=== PATIENT | male | born 1950 | race Caucasian/White ===

== ENCOUNTER 2018-03-15 10:44 | Emergency (ER) | payer OTHER ==
[~2018-03-15] VITALS: Ht 165.1 cm; Wt 61.2 kg
[2018-03-15 10:53] VITALS: BP 151/113
[2018-03-15] MEDS ORDERED: HYDROcodone-ACET 5/325MG TAB PO ONE (11:30)
[2018-03-15] MEDS ORDERED: KETOROLAC TROMETH 60MG/2ML VIAL IM ONE (11:30)
== END 2018-03-15 12:22 | disposition home or self-care (01) ==
LOC: ER 10:44
DX: S83.92XA Sprain of unspecified site of left knee, initial encounter (principal); E11.9 Type 2 diabetes mellitus without complications; I10 Essential (primary) hypertension; X58.XXXA Exposure to other specified factors, initial encounter; Y93.89 Activity, other specified; Y92.89 Other specified places as the place of occurrence of the external cause; Y99.8 Other external cause status
CPT/HCPCS: 73562; 96372; 99284; J1885

== ENCOUNTER 2021-12-11 05:59 | Emergency (ER) | payer OTHER ==
[~2021-12-11] VITALS: Ht 167.6 cm; Wt 72.6 kg
[2021-12-11 07:19] LABS: Albumin 3.5 g/dL (3.4-5.0); Calcium 8.8 mg/dL (8.5-10.1); Potassium 3.4 mmol/L (3.5-5.1); Salicylate < 1.7 mg/dL (2.8-20.0)
[2021-12-11 07:23] LABS: BUN/Creatinine Ratio 9.3; Bilirubin, Total 0.2 mg/dL (0.2-1.0); Total Protein 7.2 g/dL (6.4-8.2)
[2021-12-11 07:25] LABS: Acetaminophen < 2.0 ug/mL (10-30)
[2021-12-11 07:28] LABS: Basophils # (auto) 0 10 ^3/uL (0-0.2); Basophils % (auto) 0.2 % (0.0-2.0); Eosinophils # (auto) 0.1 10 ^3/uL (0-0.8); Eosinophils % (auto) 1.2 % (0.0-7.0); Hematocrit 40.7 % (41.0-53.0); Hemoglobin 13.6 g/dL (13.5-17.5); Lymphocytes # (auto) 1.7 10 ^3/uL (0.4-5.4); Lymphocytes % (auto) 26.5 % (10.0-50.0); Mean Corpuscular Hgb Conc. 33.5 g/dL (32.0-36.0); Mean Corpuscular Volume 95.5 fL (80.0-100.0); Monocytes # (auto) 0.5 10 ^3/uL (0-1.3); Monocytes % (auto) 7.5 % (0.0-12.0); Neutrophils # (auto) 4.2 10 ^3/uL (1.6-8.6); Neutrophils % (auto) 64.6 % (37.0-80.0); Red Blood Cells 4.26 10^6/uL (4.5-5.90); Red Cell Distribution Width 14.7 % (11.8-14.3); White Blood Cell 6.6 10^3/uL (4.4-10.8)
[2021-12-11] MEDS ORDERED: THIAMINE 100mg/ml INJ (200mg/2ml VIAL) IV ONE (08:30)
[2021-12-11] MEDS ORDERED: SODIUM CHLORIDE 0.9% 1,000 ML IV ONE ×2 (08:30)
[2021-12-11 18:17] VITALS: BP 137/83
== END 2021-12-11 18:33 | disposition home or self-care (01) ==
LOC: EDBD 05:59 → ER 05:59
DX: G93.41 Metabolic encephalopathy (principal); F10.129 Alcohol abuse with intoxication, unspecified; E11.9 Type 2 diabetes mellitus without complications; I10 Essential (primary) hypertension; R41.82 Altered mental status, unspecified; Y90.8 Blood alcohol level of 240 mg/100 ml or more
CPT/HCPCS: 36415; 70450; 71045; 72125; 80053; 80320; 80329; 85025; 93005; 96361; 96374; 99285; J3411; J7030

== ENCOUNTER 2023-07-15 16:23 | Inpatient (IN) | payer MEDICARE, OTHER ==
[~2023-07-15] VITALS: Ht 165.1 cm; Wt 66.3 kg
[2023-07-15] MEDS ORDERED: InsuLIN R (HUMAN) 100 UNITS in SODIUM CHL 0.9% 99 ML IV SCH (16:45)
[2023-07-15] MEDS ORDERED: INSULIN LANTUS (GLARGINE) 1 /0.01ml (100units/ml) SC ONE (16:45)
[2023-07-15] MEDS ORDERED: SODIUM CHLORIDE 0.9% 1,000 ML IV ONE ×2 (16:45)
[2023-07-15] MEDS ORDERED: DEXTROSE (50%) 50ML SYRG IV PRN ×2 (16:45→18:15)
[2023-07-15] MEDS ORDERED: IPRATROPIUM BROM 0.5 MG/2.5ML INH SOL NEB ONE (17:00)
[2023-07-15] MEDS ORDERED: ALBUTEROL SULF 2.5 MG/0.5ML(0.5%) NEB SOLN NEB ONE (17:00)
[2023-07-15 17:20] LABS: Basophils # (auto) 0 10 ^3/uL (0-0.2); Basophils % (auto) 0.5 % (0.0-2.0); Eosinophils # (auto) 0.1 10 ^3/uL (0-0.8); Eosinophils % (auto) 1.5 % (0.0-7.0); Hematocrit 48.7 % (41.0-53.0); Hemoglobin 15.8 g/dL (13.5-17.5); Lymphocytes # (auto) 0.9 10 ^3/uL (0.4-5.4); Lymphocytes % (auto) 13.7 % (10.0-50.0); Mean Corpuscular Hemoglobin 29.8 pg (28.0-32.0); Mean Corpuscular Hgb Conc. 32.4 g/dL (32.0-36.0); Mean Corpuscular Volume 91.9 fL (80.0-100.0); Monocytes # (auto) 0.5 10 ^3/uL (0-1.3); Neutrophils # (auto) 5.2 10 ^3/uL (1.6-8.6); Neutrophils % (auto) 76.3 % (37.0-80.0); Nucleated Red Blood Cells % 0.1 %; Red Cell Distribution Width 16.2 % (11.8-14.3); White Blood Cell 6.9 10^3/uL (4.4-10.8)
[2023-07-15] MEDS ORDERED: InsuLIN REG 1unit/0.01ml Soln (100units/ml) IV ONE (17:30)
[2023-07-15] MEDS: SODIUM CHLORIDE 0.9% 1,000 ML IV SCH (17:30)
[2023-07-15 17:34] LABS: INR 1.14 (0.9-1.15); Partial Thromboplastin Time 26.2 SEC (24.5-34.5); Prothrombin Time 11.9 sec (9.3-11.8)
[2023-07-15 17:39] LABS: Alanine Aminotransferase 26 U/L (7-40); Alkaline Phosphatase 161 U/L (46-116); Anion Gap 4 (5-15); Aspartate Aminotransferase 26 U/L (13-40); BUN/Creatinine Ratio 13.1 (10.0-20.0); Blood Urea Nitrogen 13 mg/dL (9-23); Calcium 8.2 mg/dL (8.7-10.4); Carbon Dioxide 29 mmol/L (20-30); Chloride 103 mmol/L (98-107); Potassium 3.7 mmol/L (3.5-5.1); Sodium 136 mmol/L (136-145)
[2023-07-15 17:40] LABS: Albumin 3.7 g/dL (3.2-4.8); Bilirubin, Total 0.3 mg/dL (0.2-1.0); Total Protein 5.8 g/dL (5.7-8.2)
[2023-07-15 17:44] LABS: Glucose 429 mg/dL (74-106)
[2023-07-15 18:00] VITALS: PULSE 104; RESP 20; O2SAT 93
[2023-07-15] MEDS ORDERED: ACCU-CHEK COMFORT CURVE STRIP VI SCH (18:00)
[2023-07-15 18:41] LABS: Urine Bacteria NONE SEEN /hpf (None Seen); Urine Blood Negative /uL (Negative); Urine Clarity Clear (Clear); Urine Color Yellow (Yellow); Urine Protein, UAD 2+ (Negative); Urine Specific Gravity 1.033 (1.001-1.035); Urine WBC 1 /hpf (0 - 3); Urine pH 5.5 (5.0-8.0)
[2023-07-15 19:15] LABS: Base Excess -1.5 mmol/L (-2.0-2.0)
[2023-07-15 19:36] VITALS: BP 143/93; PULSE 103; RESP 20; TEMP 97.3; O2SAT 95
[2023-07-15 20:00] VITALS: O2SAT 94
[2023-07-15] MEDS ORDERED: IOHEXOL 350 MG/ML 100ML IJ ONE (21:18)
[2023-07-15 21:45] LABS: COVID19 ANTIGEN SOFIA FIA NEGATIVE (NEGATIVE); Rapid Influenza A Negative (Negative); Rapid Influenza B Negative (Negative)
[2023-07-15 22:00] VITALS: PULSE 104; RESP 20; O2SAT 93
[2023-07-15] MEDS ORDERED: ENOXAPARIN SOD 60 MG/0.6 ML SYRINGE SC SCH (22:00)
[2023-07-15 22:08] VITALS: PULSE 101; RESP 20; O2SAT 99
[2023-07-15] MEDS: ACCU-CHEK COMFORT CURVE STRIP VI SCH (22:11)
[2023-07-15] MEDS: ALBUTEROL SULF 2.5 MG/0.5ML(0.5%) NEB SOLN NEB SCH (22:17)
[2023-07-15] MEDS: IPRATROPIUM BROM 0.5 MG/2.5ML INH SOL NEB SCH (22:17)
[2023-07-15] MEDS: methylPREDNISolone SOD SUCC 40 MG/ML VL IV SCH (22:28)
[2023-07-15] MEDS: INSULIN LANTUS (GLARGINE) 1 /0.01ml (100units/ml) SC SCH (22:29)
[2023-07-15] MEDS: InsuLIN REG 1unit/0.01ml Soln (100units/ml) SC SCH (22:30)
[2023-07-15] MEDS ORDERED: NITROGLYCERIN 0.4 MG SL TAB SL PRN (23:45)
[2023-07-15] MEDS ORDERED: MORPHINE SULFATE INJ 2 MG/ml SYRG IV PRN (23:45)
[2023-07-16] VITALS (18 sets, daily range): BP systolic 110–116; BP diastolic 72–86; PULSE 85–110; RESP 18–30; TEMP 97.6–98.2; O2SAT 93–100
[2023-07-16] MEDS: SODIUM CHLORIDE 0.9% 1,000 ML IV SCH (00:46)
[2023-07-16] MEDS: ALBUTEROL SULF 2.5 MG/0.5ML(0.5%) NEB SOLN NEB SCH ×2 (01:19→07:02)
[2023-07-16] MEDS: IPRATROPIUM BROM 0.5 MG/2.5ML INH SOL NEB SCH ×4 (01:19→18:27)
[2023-07-16] MEDS ORDERED: FUROSEMIDE 20 MG/2 ML VIAL IV SCH (06:00)
[2023-07-16] MEDS: methylPREDNISolone SOD SUCC 40 MG/ML VL IV SCH ×2 (06:26→21:28)
[2023-07-16] MEDS: ACCU-CHEK COMFORT CURVE STRIP VI SCH ×4 (06:27→21:39)
[2023-07-16] MEDS: InsuLIN REG 1unit/0.01ml Soln (100units/ml) SC SCH ×4 (06:32→21:38)
[2023-07-16 07:28] LABS: Amphetamine Screen, Urine Neg (NEGATIVE); Barbiturate Scree,Urine Neg (NEGATIVE); Benzodiazephine Screen, Urine Neg (NEGATIVE); Cannabinoid Screen, Urine Neg (NEGATIVE); Cocaine Screen, Urine Neg (NEGATIVE); Opiate Scree,Urine Neg (NEGATIVE); Phencyclidine Screen, Urine Neg (NEGATIVE)
[2023-07-16 08:16] LABS: Calcium 8.4 mg/dL (8.5-10.1); Carbon Dioxide 25 mmol/L (20-30)
[2023-07-16 08:21] LABS: BUN/Creatinine Ratio 13.3 (10.0-20.0); Blood Urea Nitrogen 14 mg/dL (9-23); Triglycerides 106 mg/dL (< 150)
[2023-07-16 08:22] LABS: LDL Cholesterol 105 mg/dL (< 100)
[2023-07-16 08:23] LABS: Cholesterol 158 mg/dL (< 200); HDL Cholesterol 36 mg/dL (40-59)
[2023-07-16 08:24] LABS: Glucose 401 mg/dL (74-106)
[2023-07-16] MEDS: cefTRIAXone 1GM/50ML D5W 50 ML IV SCH (08:54)
[2023-07-16 09:00] LABS: Anion Gap 8 (5-15); Chloride 104 mmol/L (98-107); Potassium 3.9 mmol/L (3.5-5.1); Sodium 137 mmol/L (136-145)
[2023-07-16] MEDS: ASPirin 81 mg TAB PO SCH (09:03)
[2023-07-16] MEDS: CARVEDILOL 3.125 MG TAB PO SCH ×2 (09:05→21:29)
[2023-07-16 09:07] LABS: Magnesium 1.2 mg/dL (1.6-2.6)
[2023-07-16] MEDS: AZITHROMYCIN 500MG/ 250ML 250 ML IV SCH (10:00)
[2023-07-16] MEDS ORDERED: INSULIN LANTUS (GLARGINE) 1 /0.01ml (100units/ml) SC SCH (10:00)
[2023-07-16] MEDS ORDERED: POTASSIUM CHL 20 Meq TABLET PO ONE (10:45)
[2023-07-16] MEDS: LEVALBUTEROL HCL 1.25 MG/3 ML NEB NEB SCH ×2 (11:31→18:27)
[2023-07-16] MEDS: ACETAMINOPHEN 325 MG TAB PO PRN (11:51)
[2023-07-16] MEDS: FUROSEMIDE 20 MG/2 ML VIAL IV SCH ×2 (11:53→18:33)
[2023-07-16] MEDS: MAGNESIUM SULFATE 1GM/100ML 100 ML IV SCH ×3 (11:54→15:44)
[2023-07-16 20:59] LABS: Body Fluid Polymorphonuclear 57 % (0-25); Body Fluid Red Blood Cells 440 CUMM (0-2000); Body Fluid White Blood Cells 400 CUMM (0-200)
[2023-07-16] MEDS: SACUBITRIL-VALSARTAN 24mg/26mg TAB PO SCH (21:29)
[2023-07-16] MEDS: INSULIN LANTUS (GLARGINE) 1 /0.01ml (100units/ml) SC SCH (21:38)
[2023-07-17] VITALS (15 sets, daily range): BP systolic 78–102; BP diastolic 56–70; PULSE 64–107; RESP 18–20; TEMP 97.8–98.1; O2SAT 94–98
[2023-07-17] MEDS: FUROSEMIDE 20 MG/2 ML VIAL IV SCH (06:25)
[2023-07-17] MEDS: EMPAGLIFLOZIN 10 MG TAB PO SCH (06:25)
[2023-07-17] MEDS: ACCU-CHEK COMFORT CURVE STRIP VI SCH ×4 (06:33→21:33)
[2023-07-17] MEDS: InsuLIN REG 1unit/0.01ml Soln (100units/ml) SC SCH ×4 (06:33→21:31)
[2023-07-17] MEDS: LEVALBUTEROL HCL 1.25 MG/3 ML NEB NEB SCH ×3 (07:20→17:56)
[2023-07-17] MEDS: IPRATROPIUM BROM 0.5 MG/2.5ML INH SOL NEB SCH ×3 (07:20→17:56)
[2023-07-17] MEDS: cefTRIAXone 1GM/50ML D5W 50 ML IV SCH (08:48)
[2023-07-17] MEDS: methylPREDNISolone SOD SUCC 40 MG/ML VL IV SCH ×2 (08:50→21:02)
[2023-07-17] MEDS: ASPirin 81 mg TAB PO SCH (08:53)
[2023-07-17] MEDS: CARVEDILOL 3.125 MG TAB PO SCH (09:06)
[2023-07-17] MEDS: SACUBITRIL-VALSARTAN 24mg/26mg TAB PO SCH (09:06)
[2023-07-17] MEDS ORDERED: SPIRONOLACTONE 25 MG TAB PO SCH (10:00)
[2023-07-17] MEDS: AZITHROMYCIN 500MG/ 250ML 250 ML IV SCH (10:24)
[2023-07-17] MEDS: NICOTINE 21MG/24 HR TOPICAL PATCH TD SCH (10:24)
[2023-07-17] MEDS ORDERED: ENOXAPARIN SOD 30 MG/0.3 ML SYRINGE SC ONE (11:00)
[2023-07-17] MEDS: ACETAMINOPHEN 325 MG TAB PO PRN ×2 (11:51→20:57)
[2023-07-17] MEDS ORDERED: FUROSEMIDE 20 MG/2 ML VIAL IV SCH (18:00)
[2023-07-17] MEDS: INSULIN LANTUS (GLARGINE) 1 /0.01ml (100units/ml) SC SCH (21:32)
[2023-07-18] VITALS (13 sets, daily range): BP systolic 86–108; BP diastolic 58–74; PULSE 87–110; RESP 14–22; TEMP 97.9–98.7; O2SAT 93–100
[2023-07-18] MEDS: ACETAMINOPHEN 325 MG TAB PO PRN ×2 (05:32→12:22)
[2023-07-18] MEDS: EMPAGLIFLOZIN 10 MG TAB PO SCH (06:11)
[2023-07-18] MEDS: ACCU-CHEK COMFORT CURVE STRIP VI SCH ×4 (06:16→21:34)
[2023-07-18] MEDS: InsuLIN REG 1unit/0.01ml Soln (100units/ml) SC SCH ×4 (06:21→21:33)
[2023-07-18] MEDS: IPRATROPIUM BROM 0.5 MG/2.5ML INH SOL NEB SCH ×3 (07:30→19:17)
[2023-07-18] MEDS: LEVALBUTEROL HCL 1.25 MG/3 ML NEB NEB SCH ×3 (07:31→19:17)
[2023-07-18] MEDS: cefTRIAXone 1GM/50ML D5W 50 ML IV SCH (08:44)
[2023-07-18] MEDS: methylPREDNISolone SOD SUCC 40 MG/ML VL IV SCH ×2 (08:45→21:28)
[2023-07-18] MEDS: ENOXAPARIN SOD 40 MG/0.4 ML SYRINGE SC SCH (08:46)
[2023-07-18] MEDS: ASPirin 81 mg TAB PO SCH (08:47)
[2023-07-18] MEDS: NICOTINE 21MG/24 HR TOPICAL PATCH TD SCH (08:49)
[2023-07-18] MEDS: FUROSEMIDE 20 MG TAB PO SCH (09:17)
[2023-07-18] MEDS ORDERED: FUROSEMIDE 20 MG/2 ML VIAL IV SCH (10:00)
[2023-07-18] MEDS: AZITHROMYCIN 500MG/ 250ML 250 ML IV SCH (10:54)
[2023-07-18] MEDS ORDERED: FUROSEMIDE 20 MG TAB PO ONE (15:30)
[2023-07-18] MEDS: ONDANSETRON HCL 4 MG/2 ML VIAL IV PRN (20:05)
[2023-07-18] MEDS: INSULIN LANTUS (GLARGINE) 1 /0.01ml (100units/ml) SC SCH (21:34)
[2023-07-19] VITALS (15 sets, daily range): BP systolic 98–133; BP diastolic 65–89; PULSE 88–110; RESP 14–18; TEMP 97.4–98.5; O2SAT 95–99
[2023-07-19] MEDS: ONDANSETRON HCL 4 MG/2 ML VIAL IV PRN (03:54)
[2023-07-19] MEDS: ACCU-CHEK COMFORT CURVE STRIP VI SCH ×4 (05:58→21:58)
[2023-07-19] MEDS: InsuLIN REG 1unit/0.01ml Soln (100units/ml) SC SCH ×4 (06:01→22:04)
[2023-07-19] MEDS: EMPAGLIFLOZIN 10 MG TAB PO SCH (06:02)
[2023-07-19] MEDS: IPRATROPIUM BROM 0.5 MG/2.5ML INH SOL NEB SCH ×3 (06:46→18:19)
[2023-07-19] MEDS: LEVALBUTEROL HCL 1.25 MG/3 ML NEB NEB SCH ×3 (06:46→18:19)
[2023-07-19 09:27] LABS: Basophils # (auto) 0 10 ^3/uL (0-0.2); Basophils % (auto) 0.3 % (0.0-2.0); Eosinophils # (auto) 0 10 ^3/uL (0-0.8); Hematocrit 44.9 % (41.0-53.0); Hemoglobin 14.9 g/dL (13.5-17.5); Lymphocytes # (auto) 0.4 10 ^3/uL (0.4-5.4); Lymphocytes % (auto) 4.1 % (10.0-50.0); Mean Corpuscular Hgb Conc. 33.2 g/dL (32.0-36.0); Mean Corpuscular Volume 90.3 fL (80.0-100.0); Monocytes # (auto) 0.6 10 ^3/uL (0-1.3); Monocytes % (auto) 5.9 % (0.0-12.0); Neutrophils # (auto) 9.6 10 ^3/uL (1.6-8.6); Neutrophils % (auto) 89.7 % (37.0-80.0); Nucleated Red Blood Cells % 0.2 %; Red Blood Cells 4.97 10^6/uL (4.5-5.90); Red Cell Distribution Width 15.6 % (11.8-14.3); White Blood Cell 10.7 10^3/uL (4.4-10.8)
[2023-07-19 09:57] LABS: Anion Gap 5 (5-15); Carbon Dioxide 31 mmol/L (20-30); Chloride 102 mmol/L (98-107); Potassium 4.4 mmol/L (3.5-5.1); Sodium 138 mmol/L (136-145)
[2023-07-19 09:58] LABS: Calcium 8.6 mg/dL (8.7-10.4)
[2023-07-19 10:03] LABS: BUN/Creatinine Ratio 23.9 (10.0-20.0); Blood Urea Nitrogen 27 mg/dL (9-23)
[2023-07-19 10:04] LABS: Glucose 223 mg/dL (74-106)
[2023-07-19] MEDS: methylPREDNISolone SOD SUCC 40 MG/ML VL IV SCH ×2 (10:12→21:57)
[2023-07-19] MEDS: ASPirin 81 mg TAB PO SCH (10:12)
[2023-07-19] MEDS: cefTRIAXone 1GM/50ML D5W 50 ML IV SCH (10:12)
[2023-07-19] MEDS: FUROSEMIDE 20 MG TAB PO SCH (10:13)
[2023-07-19] MEDS: ENOXAPARIN SOD 40 MG/0.4 ML SYRINGE SC SCH (10:13)
[2023-07-19] MEDS: NICOTINE 21MG/24 HR TOPICAL PATCH TD SCH (10:14)
[2023-07-19] MEDS: AZITHROMYCIN 500MG/ 250ML 250 ML IV SCH (11:21)
[2023-07-19 13:24] LABS: COVID19 ANTIGEN SOFIA FIA NEGATIVE (NEGATIVE)
[2023-07-19] MEDS: DOXYCYCLINE 100 MG TAB/CAP PO SCH (21:58)
[2023-07-19] MEDS: INSULIN LANTUS (GLARGINE) 1 /0.01ml (100units/ml) SC SCH (22:03)
[2023-07-20] VITALS (8 sets, daily range): BP systolic 130–131; BP diastolic 82–86; PULSE 94–99; RESP 14–18; TEMP 97.6–98.5; O2SAT 90–99
[2023-07-20] MEDS: IPRATROPIUM BROM 0.5 MG/2.5ML INH SOL NEB SCH ×2 (06:26→12:27)
[2023-07-20] MEDS: LEVALBUTEROL HCL 1.25 MG/3 ML NEB NEB SCH ×2 (06:26→12:27)
[2023-07-20] MEDS: EMPAGLIFLOZIN 10 MG TAB PO SCH (06:34)
[2023-07-20] MEDS: InsuLIN REG 1unit/0.01ml Soln (100units/ml) SC SCH ×2 (06:37→11:44)
[2023-07-20] MEDS: ACCU-CHEK COMFORT CURVE STRIP VI SCH ×2 (06:37→11:44)
[2023-07-20] MEDS: ASPirin 81 mg TAB PO SCH (10:10)
[2023-07-20] MEDS: DOXYCYCLINE 100 MG TAB/CAP PO SCH (10:10)
[2023-07-20] MEDS: FUROSEMIDE 20 MG TAB PO SCH (10:11)
[2023-07-20] MEDS: methylPREDNISolone SOD SUCC 40 MG/ML VL IV SCH (10:11)
[2023-07-20] MEDS: ENOXAPARIN SOD 40 MG/0.4 ML SYRINGE SC SCH (10:12)
[2023-07-20] MEDS: cefTRIAXone 1GM/50ML D5W 50 ML IV SCH (10:12)
[2023-07-20] MEDS: NICOTINE 21MG/24 HR TOPICAL PATCH TD SCH (10:13)
[2023-07-20] MEDS: ACETAMINOPHEN 325 MG TAB PO PRN (11:29)
== END 2023-07-20 14:00 | DRG 177 ==
LOC: ER 16:23 → EDBD 16:23 → TELE 23:35 → TELE-CENTR 07-16 03:40
PROVIDERS: ADMIT Nurse Practitioner Family; ATTEND Family Medicine
PROC: 0W9B3ZZ Drainage of Left Pleural Cavity, Percutaneous Approach (ICD-10-PCS; principal; 2023-07-16)
DX: J69.0 Pneumonitis due to inhalation of food and vomit (principal); I50.23 Acute on chronic systolic (congestive) heart failure; J96.21 Acute and chronic respiratory failure with hypoxia; J44.1 Chronic obstructive pulmonary disease with (acute) exacerbation; J98.11 Atelectasis; R45.851 Suicidal ideations; J44.0 Chronic obstructive pulmonary disease with (acute) lower respiratory infection; J91.8 Pleural effusion in other conditions classified elsewhere; I42.0 Dilated cardiomyopathy; I69.354 Hemiplegia and hemiparesis following cerebral infarction affecting left non-dominant side; I11.0 Hypertensive heart disease with heart failure; E11.65 Type 2 diabetes mellitus with hyperglycemia; F32.A Depression, unspecified; Z20.822 Contact with and (suspected) exposure to COVID-19; F17.200 Nicotine dependence, unspecified, uncomplicated; F41.9 Anxiety disorder, unspecified; E78.00 Pure hypercholesterolemia, unspecified; I25.10 Atherosclerotic heart disease of native coronary artery without angina pectoris; Z79.84 Long term (current) use of oral hypoglycemic drugs; Z82.49 Family history of ischemic heart disease and other diseases of the circulatory system
CPT/HCPCS: 36415; 36600; 70450; 71045; 71275; 76604; 76942; 80048; 80053; 80061; 80307; 81001; 82010; 82805; 82962; 83036; 83735; 83880; 83986; 84443; 84484; 85025; 85379; 85610; 85730; 87205; 87426; 87804; 89051; 93005; 93306; 93970; 94640; 96361; 96374; 97110; 97116; 97163; 97530; 99291; G0378; J0696; J1815; J2405